=== PATIENT | female | born 1955 | race Caucasian/White ===

== ENCOUNTER 2022-05-21 15:35 | Inpatient (IN) ==
[2022-05-21] MEDS ORDERED: ONDANSETRON INJ 2 MG/ML 2 ML VIAL IV STA (15:45)
[2022-05-21] MEDS ORDERED: SODIUM CHLORIDE 0.9% 1,000 ML IV STA (15:45)
[2022-05-21 16:32] LABS: Basophils # (auto) 0.02 K/uL (0-0.2); Basophils % (auto) 0.2 %; Hemoglobin 15.9 g/dl (12.0-16.0); Immature Granulocytes # (auto) 0.04 K/uL (0.01-0.20); Immature Granulocytes % (auto) 0.5 %; Lymphocytes # (auto) 0.66 K/uL (1.2-3.4); Lymphocytes % (auto) 7.8 %; Mean Corpuscular Hemoglobin 29.1 pg (25.0-34.0); Mean Corpuscular Hgb Conc 33.1 g/dL (32.0-36.0); Mean Corpuscular Volume 87.8 fL (80.0-100.0); Mean Platelet Volume 11.9 fL (9.4-12.4); Monocytes # (auto) 0.52 K/uL (0.11-0.59); Monocytes % (auto) 6.2 %; Neutrophils # (auto) 7.21 K/uL (1.40-6.50); Neutrophils % (auto) 85.3 %; Platelet Count 225 K/uL (130-400); RDW Coefficient of Variation 13.6 % (11.5-14.5); RDW Standard Deviation 43.7 fL (36.4-46.3); Red Blood Count 5.47 M/uL (4.20-5.40); White Blood Count 8.45 K/ul (4.8-10.8)
[2022-05-21 16:52] LABS: Alanine Aminotransferase 19 U/L (7-52); Albumin Globulin Ratio 1.4 (0.9-2); Albumin Level 5.1 gm/dl (3.4-5.0); Alkaline Phosphatase 109 U/L (34-104); Anion Gap 13 (3-11); Aspartate Aminotransferase 20 U/L (13-39); BUN Creatinine Ratio 15.7 (10-20); Bilirubin,Total 0.5 mg/dl (0.2-1.0); Blood Urea Nitrogen 53 mg/dl (6-23); Calcium 10.4 mg/dl (8.5-10.1); Carbon Dioxide 19 mmol/L (21-32); Chloride 98 mmol/L (98-107); Est GFR (African American) 15.7 ml/min; Est GFR (Non-African American) 13.5 ml/min; Globulin 3.7 gm/dl (2.5-4.0); Glucose 152 mg/dl (70-99(Fasting)); Lipase 44 U/L (11-82); Potassium 4.3 mmol/L (3.5-5.1); Sodium 130 mmol/L (136-145); Total Protein 8.8 gm/dl (6.0-8.3)
--- NOTE | 2022-05-21 17:41 | Emergency Department Note ---
History of Present Illness General Chief complaint: Dehydration Stated complaint: REF BY DOC,STOMACH VIRUS,CONSTANT BATHROOM BREAKS Time Seen by Provider: 05/21/22 17:00 History of Present Illness Maximum Pain Intensity: 3 This patient is a 67-year-old female who presents to the emergency department for evaluation of dehydration. Patient states that she has been sick for 3 days with abdominal pain, vomiting and diarrhea. She denies any abdominal pain at this time. She states that everyone in her house has been sick with similar symptoms of vomiting and diarrhea. She was having bowel movements every hour up until coming here and they now have seem to slow down. Her last episode of vomiting was yesterday. She has a history of stage III chronic kidney disease and was concerned about dehydration. Home Medications Medication Instructions Recorded Confirmed Type alprazolam 0.25 mg tablet 0.25 mg PO HS PRN Insomnia 01/25/19 05/21/22 History gabapentin 300 mg capsule 300 mg PO DAILY@1500 01/25/19 05/21/22 History losartan 25 mg tablet 25 mg PO QAM 01/25/19 05/21/22 History lancets 33 gauge (BD Ultra Fine #100 ea 04/21/20 05/21/22 History Lancets) blood sugar diagnostic (ReliOn #10 ea 06/23/20 05/21/22 History Prime Test Strips) empagliflozin 25 mg tablet 25 mg PO DAILY 09/21/21 05/21/22 History (Jardiance) metoprolol tartrate 25 mg tablet 25 mg PO BID 04/22/22 05/21/22 History omeprazole 40 mg capsule,delayed 40 mg PO DAILY 05/21/22 05/21/22 History release rosuvastatin 20 mg tablet 20 mg PO HS 05/21/22 05/21/22 History Allergies Allergy/AdvReac Type Severity Reaction Status Date / Time metformin Allergy Unknown Verified 04/22/22 15:12 penicillin V [From Pen-Vee K] AdvReac Intermediate Leg Rash Unverified 04/22/22 15:12 tetracycline AdvReac Intermediate GI Unverified 04/22/22 15:12 Upset/Nausea Past Med/Surg History Medical History CKD (chronic kidney disease), stage III Diabetes type 2, uncontrolled Diabetic nephropathy associated with type 2 diabetes mellitus Dyslipidemia GERD (gastroesophageal reflux disease) Hypercalcemia Hypertension Paroxysmal SVT (supraventricular tachycardia) Stage 3b chronic kidney disease Vitamin D deficiency Surgical History History of hysterectomy Family History Grandmother (Maternal) Breast cancer Denies family history of Ovarian cancer Colorectal cancer Social History Smoking Status: Former smoker Hx Alcohol Use: Yes Hx Substance Use: No Preferred Language: Estonian marital status: Current Living Situation: Family Current Living Situation Comment: son and and grandkids current occupation: works at [employer] Feels Safe at Home: Yes Physical Activity Frequency Comment: walks 2 x week - sometimes in stores, etc Physical Exam Vital Signs Vital Signs - 24 hr 05/21/22 15:43 05/21/22 19:21 Temperature 36.7 C 36.9 C Temperature Source Temporal Artery Scan Oral Pulse Rate 88 Pulse Rate [Apical] 68 Respiratory Rate 18 20 Respiratory Effort / Characteristics Non-Labored Respiratory Depth Normal Respiratory Pattern Regular Blood Pressure 108/74 Blood Pressure [Left Arm] 103/65 Blood Pressure Mean 85 Blood Pressure Mean [Left Arm] 77 Blood Pressure Position Sitting Blood Pressure Position [Left Arm] Sitting Pulse Oximetry 96 96 Oxygen Delivery Method Room Air Room Air Sepsis Recent Fever Within 48 Hours No Sepsis New/Unexplained Change in Mental Status No Sepsis Action Taken by Nursing No Action Required VITALS: Vitals are noted on the nurse's note and reviewed by myself. GENERAL: This is a 67-year-old female, in no acute distress,well-developed well-nourished. SKIN: The skin was without rashes. MOUTH: Mucous membranes slightly dry. HEART: Regular rate and rhythm without murmurs gallops or rubs. LUNGS: Clear to auscultation bilaterally without wheezes, rales or rhonchi. ABDOMEN: Positive bowel sounds x 4. Soft, nontender to palpation. No guarding or rebound tenderness. NEURO: Patient was alert and oriented to person place and time. Course Administered Medications Discontinued Medications Sodium Chloride (Nss) 1,000 mls @ 999 mls/hr IV .Q1H1M STA Stop: 05/21/22 16:45 Last Infusion: 05/21/22 19:04 Dose: 0 mls/hr Documented By: Admin: 05/21/22 16:11 Dose: 999 mls/hr Documented By: QGV Ondansetron HCl (Ondansetron Inj 2 Mg/Ml 2 Ml Vial) 4 mg IV NOW STA Stop: 05/21/22 15:46 Last Admin: 05/21/22 16:10 Dose: 4 mg Documented By: QGV Medical Decision Making Differential Diagnosis Gastroenteritis, food borne illness, infections, appendicitis, diverticulitis, inflammatory bowel disease, obstruction, GI bleed, biliary pathology, volvulus, as well as other pathologies. Home Medications Current Medication List: was personally reviewed by me Laboratory Data Attestation: I reviewed the patient's lab results. 05/21/22 16:18 05/21/22 16:18 Lab Results 05/21/22 05/21/22 05/21/22 Range/Units 16:18 16:18 19:09 WBC 8.45 (4.8-10.8) K/ul RBC 5.47 H (4.20-5.40) M/uL Hgb 15.9 (12.0-16.0) g/dl Hct 48.0 H (37.0-47.0) % MCV 87.8 (80.0-100.0) fL MCH 29.1 (25.0-34.0) pg MCHC 33.1 (32.0-36.0) g/dL RDW Std Deviation 43.7 (36.4-46.3) fL RDW Coeff of Reyes 13.6 (11.5-14.5) % Plt Count 225 (130-400) K/uL MPV 11.9 (9.4-12.4) fL Immature Gran % (Auto) 0.5 % Neut % (Auto) 85.3 % Lymph % (Auto) 7.8 % [place] % (Auto) 6.2 % Eos % (Auto) 0.0 % Baso % (Auto) 0.2 % Neut # (Auto) 7.21 H (1.40-6.50) K/uL Lymph # (Auto) 0.66 L (1.2-3.4) K/uL [place] # (Auto) 0.52 (0.11-0.59) K/uL Eos # (Auto) 0.00 (0-0.50) K/uL Baso # (Auto) 0.02 (0-0.2) K/uL Immature Gran # (Auto) 0.04 (0.01-0.20) K/uL Sodium 130 L (136-145) mmol/L Potassium 4.3 (3.5-5.1) mmol/L Chloride 98 (98-107) mmol/L Carbon Dioxide 19 L (21-32) mmol/L Anion Gap 13 H (3-11) BUN 53 H (6-23) mg/dl Creatinine 3.37 H (0.6-1.2) mg/dl Est Cr Clr Drug Dosing Not Reportable Est GFR ( Amer) 15.7 ml/min Est GFR (Non-Af Amer) 13.5 ml/min BUN/Creatinine Ratio 15.7 (10-20) Glucose 152 H (70-99(Fasting)) mg/dl Calcium 10.4 H (8.5-10.1) mg/dl Magnesium 2.1 (1.7-2.4) mg/dl Total Bilirubin 0.5 (0.2-1.0) mg/dl AST 20 (13-39) U/L ALT 19 (7-52) U/L Alkaline Phosphatase 109 H (34-104) U/L Total Protein 8.8 H (6.0-8.3) gm/dl Albumin 5.1 H (3.4-5.0) gm/dl Globulin 3.7 (2.5-4.0) gm/dl Albumin/Globulin Ratio 1.4 (0.9-2) Lipase 44 (11-82) U/L SARS-CoV-2 (PCR) NEGATIVE (Negative) Influenza Type A (PCR) Negative (Neg) Influenza Type B (PCR) Negative (Neg) RSV (RT-PCR) Negative (Neg) MDM Narrative The patient is a 67-year-old female who presents today complaining of vomiting, diarrhea and dehydration. Labs revealed no leukocytosis or anemia. Patient found to have an acute kidney injury with creatinine of 3.37, BUN of 53. Her anion gap is 13, bicarb 19. She is hyponatremic with a sodium of 130. COVID-19 testing was negative, patient unable to provide a stool sample. There has been norovirus in the community lately and this certainly may be the source of her symptoms. Patient given IV hydration and Zofran. The case was discussed with the [facility] hospitalist service due to patient's acute kidney injury. Impression & Plan Acute kidney injury superimposed on CKD, Nausea, vomiting and diarrhea, Hyponatremia Discharge Plan Visit Data Chief Complaint: Dehydration Stated Complaint: REF BY DOC,STOMACH VIRUS,CONSTANT BATHROOM BREAKS ED Provider: Remy Hansen ED Midlevel Provider: Aurelia Bullock Discharge Problem: Acute kidney injury superimposed on CKD, Nausea, vomiting and diarrhea, Hyponatremia Forms Stand Alone Forms: [facility] Prescriptions Prescriptions: No Action (DME) lancets [BD Ultra Fine Lancets] 33 gauge misc See Rx Instructions .ROUTE .MEDSUPPLY Qty: 100 Rx Instructions: As directed metoprolol tartrate 25 mg tablet 25 mg PO BID Jardiance 25 mg tablet 25 mg PO DAILY (DME) ReliOn Prime Test Strips Strip See Rx Instructions .ROUTE .MEDSUPPLY Qty: 10 Rx Instructions: As directed alprazolam 0.25 mg tablet 0.25 mg PO HS PRN (Reason: Insomnia) losartan 25 mg Tablet 25 mg PO QAM gabapentin 300 mg Capsule 300 mg PO DAILY@1500 omeprazole 40 mg capsule,delayed release(DR/EC) 40 mg PO DAILY rosuvastatin 20 mg tablet 20 mg PO HS Referrals Referrals: Jamel Dias MD [Primary Care Provider] -
--- NOTE | 2022-05-21 18:45 | History & Physical Report ---
Date of Service May 21, 2022 Assessment & Plan (1) Nausea, vomiting and diarrhea: (2) Dehydration: Plan: Patient is 67-year-old female with PMH DM II, HTN, dyslipidemia, paroxysmal SVT, CKD III, GERD presented to ER with complaint of nausea, vomiting, diarrhea x 3 days. +household members with N/V/D In ER afebrile, vital stable. No leukocytosis. Likely viral gastroenteritis Stool culture pending IVF Sips and ice chips for now. Consider clear fluids tomorrow Zofran as needed No significant abdominal pain, so will hold on abdominal imaging at this time CBC, BMP in a.m. (3) Acute kidney injury superimposed on CKD: Plan: BUN: 53, Cr: 3.3. Baseline creatinine 1.5 per outpatient review Likely secondary to dehydration, vomiting, diarrhea IVF Monitor renal functions Hold losartan and avoid other nephrotoxic agents when possible If no improvement consider nephrology consult (4) Hyponatremia: Plan: Likely secondary to decreased oral intake and GI losses Na: 130 Monitor (5) Diabetic nephropathy associated with type 2 diabetes mellitus: Plan: A1c: 6.9 on 04/20/2022 Hold home agents NovoLog correction sliding scale only at this time as patient p.o. May need to further adjust (6) Paroxysmal SVT (supraventricular tachycardia): Plan: Continue metoprolol tartrate (7) Hypertension: Plan: Hold losartan Continue metoprolol tartrate (8) Dyslipidemia: Plan: Continue rosuvastatin (9) GERD (gastroesophageal reflux disease): Plan: Continue PPI DVT Prophylaxis Lovenox SQ Full code as per discussion with pt Follows with Dr Dias for routine care Pt was seen and care coordinated with Dr Lizarraga. See addendum History of Present Illness Chief Complaint: Vomiting, diarrhea Primary Care Provider: Jamel Dias MD Patient is 67-year-old female with PMH DM II, HTN, dyslipidemia, paroxysmal SVT, CKD III, GERD presented to ER with complaint of nausea, vomiting, diarrhea x 3 days. Patient states 3 days ago onset of nausea, vomiting, diarrhea. Was having episodes of vomiting and diarrhea every 5-10 minutes. No vomiting since yesterday. Still with some nausea. Last episode of diarrhea was at 1400 today. Was trying clear fluids at home however was having difficulty retaining. Reports some diffuse abdominal aching. Reports all her other family members have nausea vomiting and diarrhea as well. Denies fever/chills, diaphoresis, N/V/D/C, AVINA, dizziness, syncope, vision changes, neck pain, CP, SOB, orthopnea, palpitations, cough, sore throat, choking, otalgia, rhinorrhea, abdominal pain, paresthesias, weakness, extremity weakness, extremity edema, rashes, urinary symptoms. Denies fever/chills, diaphoresis, hematemesis, hematochezia, AVINA, dizziness, syncope, vision changes, neck pain, CP, SOB, orthopnea, palpitations, cough, sore throat, choking, otalgia, rhinorrhea, paresthesias, weakness, extremity weakness, extremity edema, rashes, urinary symptoms. Allergies Allergy/AdvReac Type Severity Reaction Status Date / Time metformin Allergy Unknown Verified 04/22/22 15:12 penicillin V [From Wyatt-Vedaxa K] AdvReac Intermediate Leg Rash Unverified 04/22/22 15:12 tetracycline AdvReac Intermediate GI Unverified 04/22/22 15:12 Upset/Nausea Home Medications Medication Instructions Recorded Confirmed Type alprazolam 0.25 mg tablet 0.25 mg PO HS PRN Insomnia 01/25/19 05/21/22 History gabapentin 300 mg capsule 300 mg PO DAILY@1500 01/25/19 05/21/22 History losartan 25 mg tablet 25 mg PO QAM 01/25/19 05/21/22 History lancets 33 gauge (BD Ultra Fine #100 ea 04/21/20 05/21/22 History Lancets) blood sugar diagnostic (ReliOn #10 ea 06/23/20 05/21/22 History Prime Test Strips) empagliflozin 25 mg tablet 25 mg PO DAILY 09/21/21 05/21/22 History (Jardiance) metoprolol tartrate 25 mg tablet 25 mg PO BID 04/22/22 05/21/22 History omeprazole 40 mg capsule,delayed 40 mg PO DAILY 05/21/22 05/21/22 History release rosuvastatin 20 mg tablet 20 mg PO HS 05/21/22 05/21/22 History Past Med/Surg History Medical History CKD (chronic kidney disease), stage III Diabetes type 2, uncontrolled Diabetic nephropathy associated with type 2 diabetes mellitus Dyslipidemia GERD (gastroesophageal reflux disease) Hypercalcemia Hypertension Paroxysmal SVT (supraventricular tachycardia) Stage 3b chronic kidney disease Vitamin D deficiency Surgical History History of hysterectomy Family History Grandmother (Maternal) Breast cancer Denies family history of Ovarian cancer Colorectal cancer Social History Smoking Status: Former smoker Second Hand Exposure: No; Do You Dip or Chew Tobacco: No; Hx Alcohol Use: Yes Alcohol type: beer and hard liquor Hx Substance Use: No Preferred Language: Japanese Communication Ability: Effective Mac Developer Required: No Beliefs That Will Affect Care: None marital status: Current Living Situation: Spouse and Family Current Living Situation Comment: son and and grandkids current occupation: works at [employer] Other Information That Helps Us Care for You: No Feels Safe at Home: Yes Safety Concerns: Feels Safe At This Time Physical Activity Frequency Comment: walks 2 x week - sometimes in stores, etc Assistive Devices: Contacts, Denture - Upper, Denture - Lower and Glasses Review of Systems Review of Systems: All systems reviewed & are unremarkable except as noted in HPI & below Physical Exam Physical Exam: General: no distress, WDWN Head: normocephalic, atraumatic Eyes: conjunctiva non-injected, anicteric ENT: normal inspection external ears, nose, mucous membranes dry Neck: supple, trachea midline Lungs: clear, no respiratory distress, no wheezing/rhonchi/rales CV: RRR, no murmur, no pretibial edema Abd: normal BS, soft, non-tender Ext: no cyanosis, no calf tenderness Neuro: A&O x 3, no focal deficits noted, normal affect Skin: warm, dry Results & Data Results & Data ([facility]) Vital Signs (Past 12 Hours) Vital Signs Temp Pulse Resp BP Pulse Ox O2 Del Method 05/21/22 15:43 36.7 C 88 18 108/74 96 Room Air Laboratory Results Short CBC 05/21/22 Range/Units 16:18 WBC 8.45 (4.8-10.8) K/ul Hgb 15.9 (12.0-16.0) g/dl Hct 48.0 H (37.0-47.0) % Plt Count 225 (130-400) K/uL BMP 05/21/22 16:18 Sodium 130 L Potassium 4.3 Chloride 98 Carbon Dioxide 19 L BUN 53 H Creatinine 3.37 H Glucose 152 H Calcium 10.4 H Liver Function 05/21/22 Range/Units 16:18 Total Bilirubin 0.5 (0.2-1.0) mg/dl AST 20 (13-39) U/L ALT 19 (7-52) U/L Alkaline Phosphatase 109 H (34-104) U/L Albumin 5.1 H (3.4-5.0) gm/dl Supervising Physician Co-Signing Physician Notes Pt was seen and examined at bedside. Agreed with Jenna COFFEY exam, assessment and plan. 67-year-old female with PMH DM II, HTN, dyslipidemia, paroxysmal SVT, CKD III, GERD presented to ER with complaint of nausea, vomiting, diarrhea x 3 days. Patient said that about 3 days ago she developed of nausea, vomiting, diarrhea. Pt said that she has been having recurrent episodes diarrhea every few minutes. She said that anything she eats that she vomiting and and diarrhea. She said the last time she vomited was yesterday. She said everyone in her house has the similar symptoms. She also having diffuse abdominal tenderness. Denies fever/chills, diaphoresis, N/V/D/C, AVINA, dizziness, syncope, SOB, orthopnea, palpitations, cough, sore throat, choking. Lab on admission with creatinine 3.37 and Na 130. Will check stool culture. Received IVF on admission. Continue supportive therapy with IV fluid hydration. Will hold losartan due to elevate creatinine. Avoid nephrotoxic agents. If creatinine worsening, will consult nephrology. Continue monitor BMP. MD Elham
[2022-05-21 19:09] LABS: Magnesium 2.1 mg/dl (1.7-2.4)
[2022-05-21 20:06] LABS: Influenza A virus by PCR Negative (Neg); Influenza B virus by PCR Negative (Neg); RSV by PCR Negative (Neg); SARS CoV2 RNA(COVID-19) Ceph NEGATIVE (Negative)
[2022-05-21 22:43] LABS: Appearance Urine Cloudy (Clear); Bacteria Urine Automated Negative (Negative); Bilirubin Urine Negative (Negative); Blood Urine Negative (Negative); Color Urine Yellow; Epithelial Cell Urine Auto >30 /lpf (0-5); Glucose Urine UA 2+ (Negative); Ketones Urine Trace (Negative); Leukocyte Esterase Urine Negative (Negative); Nitrite Urine Negative (Negative); Protein Urine 1+ (Negative); RBC Urine Automated 0-4 /hpf (0-4); Specific Gravity Urine 1.019 (1.000-1.030); Urobilinogen Urine Negative (Negative)
[2022-05-21] MEDS ORDERED: GLUCAGON FOR INJ 1 MG VIAL SQ PRN (23:07)
[2022-05-21] MEDS ORDERED: GLUCOSE 40% GEL 15 GM TUBE PO PRN (23:07)
[2022-05-21] MEDS ORDERED: DEXTROSE 50% 50 ML SYRINGE IV PRN (23:07)
[2022-05-21] MEDS ORDERED: ONDANSETRON INJ 2 MG/ML 2 ML VIAL IV PRN (23:07)
[2022-05-21] MEDS ORDERED: GLUCOSE 10 TAB/TUBE PO PRN (23:07)
[2022-05-21] MEDS ORDERED: CARBOHYDRATES FOR HYPOGLYCEMIA PO PRN (23:07)
[2022-05-21] MEDS ORDERED: ACETAMINOPHEN 325 MG TAB PO PRN (23:07)
[2022-05-21] MEDS ORDERED: ALPRAZolam 0.25 MG TABLET PO PRN (23:07)
[2022-05-21] MEDS ORDERED: ENOXAPARIN INJ 40 MG/0.4 ML SYR SQ SCH (23:07)
[2022-05-22 00:03] LABS: Adenovirus F 40/41 PCR Not Detected (NotDetected); Astrovirus PCR Not Detected (NotDetected); Campylobacter PCR Not Detected (NotDetected); Cryptosporidium PCR Not Detected (NotDetected); Cyclospora cayetanensis PCR Not Detected (NotDetected); Entamoeba histolytica PCR Not Detected (NotDetected); Enteroaggregative E.coli(EAEC) Not Detected (NotDetected); Enteropathogenic E.coli (EPEC) Not Detected (NotDetected); Enterotoxigenic E.coli (ETEC) Not Detected (NotDetected); Giardia lamblia PCR Not Detected (NotDetected); Norovirus GI/GII PCR Not Detected (NotDetected); Plesiomonas shigelloides PCR Not Detected (NotDetected); Salmonella PCR Not Detected (NotDetected); Sapovirus PCR Not Detected (NotDetected); Shiga-like Toxin E.coli (STEC) Not Detected (NotDetected); Shigella/Enteroinvasive E.coli Not Detected (NotDetected); Vibrio cholerae PCR Not Detected (NotDetected); Vibrio species PCR Not Detected (NotDetected); Yersinia enterocolitica PCR Not Detected (NotDetected)
[2022-05-22 00:07] LABS: Rotavirus A PCR DETECTED (NotDetected)
[2022-05-22] MEDS: SODIUM CHLORIDE 0.9% 1000ML 1,000 ML IV SCH ×3 (00:07→21:44)
[2022-05-22] MEDS: INSULIN ASPART PER UNIT SC SCH ×4 (00:14→17:24)
[2022-05-22] MEDS: METOPROLOL TARTRATE 25 MG TAB PO SCH ×3 (00:33→20:08)
[2022-05-22] MEDS: HEPARIN SOD 5,000 UNIT/0.5 ML VIAL SQ SCH ×3 (05:36→21:02)
[2022-05-22 06:43] LABS: Hematocrit (blood only) 40.4 % (37.0-47.0); Hemoglobin 13.5 g/dl (12.0-16.0); Mean Corpuscular Hemoglobin 29.2 pg (25.0-34.0); Mean Corpuscular Hgb Conc 33.4 g/dL (32.0-36.0); Mean Corpuscular Volume 87.4 fL (80.0-100.0); Mean Platelet Volume 11.7 fL (9.4-12.4); Platelet Count 183 K/uL (130-400); RDW Coefficient of Variation 13.7 % (11.5-14.5); RDW Standard Deviation 43.8 fL (36.4-46.3); Red Blood Count 4.62 M/uL (4.20-5.40); White Blood Count 5.98 K/ul (4.8-10.8)
[2022-05-22 07:16] LABS: Albumin Globulin Ratio 1.3 (0.9-2); Albumin Level 3.9 gm/dl (3.4-5.0); BUN Creatinine Ratio 22.9 (10-20); Bilirubin,Total 0.4 mg/dl (0.2-1.0); Calcium 9.1 mg/dl (8.5-10.1); Creatinine Clr Calc Pharmacy 20.6 ml/min; Est GFR (Non-African American) 17.3 ml/min; Globulin 2.9 gm/dl (2.5-4.0); Potassium 4.3 mmol/L (3.5-5.1); Total Protein 6.8 gm/dl (6.0-8.3)
[2022-05-22] MEDS: PANTOprazole 40 MG TAB PO SCH (09:33)
[2022-05-22] MEDS ORDERED: LOPERAMIDE HCL 2 MG CAP PO PRN (14:12)
[2022-05-22] MEDS: GABAPENTIN 300 MG CAP PO SCH (15:09)
--- NOTE | 2022-05-22 18:26 | Hospitalist Progress Note ---
Date of Service May 22, 2022 Assessment & Plan (1) Nausea, vomiting and diarrhea: (2) Dehydration: Plan: 67-year-old female with PMH DM II, HTN, dyslipidemia, paroxysmal SVT, CKD III, GERD presented to ER with complaint of nausea, vomiting, diarrhea x 3 days. +household members with N/V/D Likely viral gastroenteritis Stool culture positive for rotavirus Continue supportive therapy with IVF Continue monitor electrolytes Starting on Full liquid diet, will advance as tolerated Starting on Loperamide and continue Zosyn prn Continue monitor closely (3) Acute kidney injury superimposed on CKD: Plan: BUN: 53, Cr: 3.3 on admission Baseline creatinine 1.5 per outpatient review Likely secondary to dehydration, vomiting, diarrhea Creatinine improved to 2.7 after IVF Continue to hold losartan a avoid other nephrotoxic agents when possible If no improvement consider nephrology consult Continue monitor BMP (4) Hyponatremia: Plan: Likely secondary to decreased oral intake and GI losses Na: 132 today Continue IVF (5) Diabetic nephropathy associated with type 2 diabetes mellitus: Plan: A1c: 6.9 on 04/20/2022 Hold home agents Continue NovoLog correction sliding scale only at this time Continue monitor BS (6) Paroxysmal SVT (supraventricular tachycardia): Plan: Continue metoprolol tartrate (7) Hypertension: Plan: Continue to Hold losartan due to elevate creatinine Continue metoprolol tartrate (8) Dyslipidemia: Plan: Continue rosuvastatin (9) GERD (gastroesophageal reflux disease): Plan: Continue PPI DVT Prophylaxis Lovenox SQ Full code Follows with Dr Dias for routine care Disposition will discharge once medically stable Admission and Anticipated Discharge Date Admission Date: May 21, 2022 Subjective Pt was seen and examined for follow up Lying in bed with no acute distress Pt said that she continues to have diarrhea about 3 so far since this morning She said that she feels nauseated after eating the full liquid diet Denies any chest pain, palpitation, dizziness and SOB Review of Systems Review of Systems: All systems reviewed & are unremarkable except as noted in Subjective Physical Exam Physical Exam: General- No acute distress Head- atraumatic Eyes- PERRL, EOMI, ENT- oropharynx clear Neck- supple, no JVD Lungs- clear to auscultation Heart- regular rhythm; no murmur Abdomen- normal bowel sounds, soft, +mild abdominal tenderness with palpation Extremities- no calf tenderness Neuro- alert, oriented x 3; PERRL, EOMI; no facial palsy; no dysarthria Skin- warm & dry Results & Data Results & Data ([facility]) Vital Signs (Past 12 Hours) Vital Signs Temp Pulse Pulse Resp BP Pulse Ox O2 Del Method 05/22/22 15:58 36.5 C 57 L 18 117/68 97 Room Air 05/22/22 15:28 54 L 05/22/22 11:09 36.6 C 53 L 18 100/63 95 Room Air 05/22/22 07:43 36.5 C 67 20 106/55 L 93 Room Air 05/22/22 07:38 85
[2022-05-22] MEDS ORDERED: ROSUVASTATIN CALCIUM 20 MG TAB PO SCH (21:00)
[2022-05-23] MEDS: INSULIN ASPART PER UNIT SC SCH ×4 (00:34→11:35)
[2022-05-23] MEDS: HEPARIN SOD 5,000 UNIT/0.5 ML VIAL SQ SCH ×2 (05:45→14:08)
[2022-05-23] MEDS: METOPROLOL TARTRATE 25 MG TAB PO SCH (07:35)
[2022-05-23 08:38] LABS: BUN Creatinine Ratio 28.3 (10-20); Calcium 8.6 mg/dl (8.5-10.1); Creatinine Clr Calc Pharmacy 32.8 ml/min; Est GFR (Non-African American) 30.2 ml/min; Phosphorus 3.2 mg/dl (2.5-4.9); Potassium 3.6 mmol/L (3.5-5.1)
[2022-05-23] MEDS: SODIUM CHLORIDE 0.9% 1000ML 1,000 ML IV SCH (10:05)
[2022-05-23] MEDS ORDERED: Nursing to Pharmacy Communication SCH (10:30)
--- NOTE | 2022-05-23 12:27 | Discharge Summary ---
Date of Service May 23, 2022 Admission HPI Per Admitting Provider Patient is 67-year-old female with PMH DM II, HTN, dyslipidemia, paroxysmal SVT, CKD III, GERD presented to ER with complaint of nausea, vomiting, diarrhea x 3 days. Patient states 3 days ago onset of nausea, vomiting, diarrhea. Was having episodes of vomiting and diarrhea every 5-10 minutes. No vomiting since yesterday. Still with some nausea. Last episode of diarrhea was at 1400 today. Was trying clear fluids at home however was having difficulty retaining. Reports some diffuse abdominal aching. Reports all her other family members have nausea vomiting and diarrhea as well. Denies fever/chills, diaphoresis, N/V/D/C, AVINA, dizziness, syncope, vision changes, neck pain, CP, SOB, orthopnea, palpitations, cough, sore throat, choking, otalgia, rhinorrhea, abdominal pain, paresthesias, weakness, extremity weakness, extremity edema, rashes, urinary symptoms. Denies fever/chills, diaphoresis, hematemesis, hematochezia, AVINA, dizziness, syncope, vision changes, neck pain, CP, SOB, orthopnea, palpitations, cough, sore throat, choking, otalgia, rhinorrhea, paresthesias, weakness, extremity weakness, extremity edema, rashes, urinary symptoms. Admission Exam Per Admitting Provider General: no distress, WDWN Head: normocephalic, atraumatic Eyes: conjunctiva non-injected, anicteric ENT: normal inspection external ears, nose, mucous membranes dry Neck: supple, trachea midline Lungs: clear, no respiratory distress, no wheezing/rhonchi/rales CV: RRR, no murmur, no pretibial edema Abd: normal BS, soft, non-tender Ext: no cyanosis, no calf tenderness Neuro: A&O x 3, no focal deficits noted, normal affect Skin: warm, dry Principal Diagnosis Viral gastroenteritis, dehydration Acute kidney injury superimposed on CKD Hyponatremia Discharge Exam GENERAL: Alert and oriented x3. NAD, on RA. HEENT: No pallor, no icterus. Pupils equal, round and reactive to light. Oral mucosa moist. NECK: No JVD, no neck masses. HEART: S1 and S2 heard. Regular rate and rhythm. No murmur, no gallop. RESPIRATORY SYSTEM: Normal AP diameter. No accessory muscle use. No wheezing, no crackles. ABDOMEN: Soft, bowel sounds present, nontender, no distention. CENTRAL NERVOUS SYSTEM: No facial droop. Speech is clear. Obeys simple comman ds. Moves extremities. EXTREMITIES: No edema, no erythema seen. Discharge Data Allergies Allergy/AdvReac Type Severity Reaction Status Date / Time metformin Allergy Unknown Verified 04/22/22 15:12 penicillin V [From Pen-Vee K] AdvReac Intermediate Leg Rash Unverified 04/22/22 15:12 tetracycline AdvReac Intermediate GI Unverified 04/22/22 15:12 Upset/Nausea Consultations 05/21/22 18:24 ED Decision to Admit Stat Hospital Course (1) Nausea, vomiting and diarrhea: (2) Dehydration: 67-year-old female with PMH DM II, HTN, dyslipidemia, paroxysmal SVT, CKD III, GERD presented to ER with complaint of nausea, vomiting, diarrhea x 3 days. +household members with N/V/D viral gastroenteritis Stool culture positive for rotavirus Diarrhea none since yesterday evening, improving appetite, no belly pain continue pedialytes solution for next 3 days on DC. F/u PCP in a week for eval/labs. Pt hemodynamically stable. (3) Acute kidney injury superimposed on CKD: BUN: 53, Cr: 3.3 on admission Baseline creatinine 1.5 per outpatient review Likely secondary to dehydration, vomiting, diarrhea Creatinine improved to 1.7 today, pt w/ improving PO intake and no further diarrhea hold losartan for next 3 days on DC; f/u PCP for labs/eval. (4) Hyponatremia: Likely secondary to decreased oral intake and GI losses Na: resolved. (5) Diabetic nephropathy associated with type 2 diabetes mellitus: A1c: 6.9 on 04/20/2022 c/w prior meds on dc. (6) Paroxysmal SVT (supraventricular tachycardia): Continue metoprolol tartrate (7) Hypertension: fairly wnl to soft. (8) Dyslipidemia: Continue rosuvastatin (9) GERD (gastroesophageal reflux disease): Continue PPI DVT Prophylaxis Lovenox SQ Full code Follows with Dr Dias for routine care Plan Patient being discharged home with following instruction at the point of discharge: Follow-up with your primary care physician within a week time and likely you will need labs CBC/CMP/magnesium/phosphorus. For the next 2 to 3 days, continue using [id number] electrolyte solution such as Pedialyte up to 1.5 L a day; maintain adequate hydration. Hold your home dose of losartan for next 3 days. Take your medications as prescribed. Home Health Attestation I certify that this patient is under my care and that I, or a physicians material assistant working with me, had a face to-face encounter that meets the home health [id number] encounter requirements with this patient. The encounter with the patient was in whole, or in part, for the following medical condition, which is the primary reason for home health care (list medical condition): I certify that, based on my findings, the following services are medically necessary home health services: My clinical findings support the need for the above services because: Further, I certify that my clinical findings support that this patient is homebound (i.e. absences from home require considerable and taxing effort and are for medical reasons or congregational services or infrequently or of short duration when for other reasons) because: Certification for Home Health Services: Based on the above findings, I certify that this patient is confined to the home and needs intermittent care home care, physical therapy and/or speech therapy or continues to need occupational therapy. The patient is under my care, and I have initiated the establishment of the plan of care. This patient will be followed by a physician who will periodically review the plan of care. Total Time Total Time Spent Total Time Spent (In Minutes): 45 Discharge Plan Discharge Items Patient Disposition: Home - Self-Care Reason For Visit: ABRAHAM Discharge Diagnosis: Viral gastroenteritis, dehydration Acute kidney injury superimposed on CKD Hyponatremia Activity: Resume your previous activity Non-emergency contact: Primary Care Provider Call non-emergency contact if: you have any medication questions, your symptoms worsen and your temperature is above 101 Follow-up/Referrals: Jamel Dias MD [Primary Care Provider] - Diet: Low Fat Addtl Attending Provider Instructions: Follow-up with your primary care physician within a week time and likely you will need labs CBC/CMP/magnesium/phosphorus. For the next 2 to 3 days, continue using [id number]-ukm-[id number] electrolyte solution such as Pedialyte up to 1.5 L a day; maintain adequate hydration. Hold your home dose of losartan for next 3 days. Take your medications as prescribed. Pending Studies at Discharge: Yes (Urine culture final results.) Stand-Alone Forms: My [facility], Smoking Cessation Medications and DC Order Prescriptions: Continued (DME) lancets [BD Ultra Fine Lancets] 33 gauge misc See Rx Instructions .ROUTE .MEDSUPPLY Qty: 100 Rx Instructions: As directed metoprolol tartrate 25 mg tablet 25 mg PO BID Jardiance 25 mg tablet 25 mg PO DAILY (DME) ReliOn Prime Test Strips Strip See Rx Instructions .ROUTE .MEDSUPPLY Qty: 10 Rx Instructions: As directed alprazolam 0.25 mg tablet 0.25 mg PO HS PRN (Reason: Insomnia) losartan 25 mg Tablet 25 mg PO QAM gabapentin 300 mg Capsule 300 mg PO DAILY@1500 omeprazole 40 mg capsule,delayed release(DR/EC) 40 mg PO DAILY rosuvastatin 20 mg tablet 20 mg PO HS Discharge Orders: Discharge Order (Routine); Ordered 05/23/22 Ordered By: Sung Davis Admission Data Admit Date/Time: 05/21/22 18:47 Attending Provider: Sung Davis Admit Provider: Celsa Lizarraga Primary Care Provider: Jamel Dias Other Providers: Celsa Lizarraga
[2022-05-23] MEDS: PANTOprazole 40 MG TAB PO SCH (12:31)
[2022-05-23] MEDS: GABAPENTIN 300 MG CAP PO SCH (16:15)
[2022-05-23] MEDS ORDERED: PANTOprazole 40 MG TAB PO SCH (21:00)
== END 2022-05-23 17:10 | disposition home or self-care (01) | DRG 392 ==
LOC: ED 15:35 → SUATTDRO 18:47 → 2N 18:47